=== PATIENT | male | born 1975 | race Asian ===

== ENCOUNTER → 2017-10-24 15:45 | Outpatient (CLI) | payer OTHER, SELFPAY | PROVIDERS: Visit Provider Physician Assistant | DX: R31.9 Hematuria, unspecified (principal) | CPT/HCPCS: 87086 ==

== ENCOUNTER → 2018-06-02 17:12 | Outpatient (CLI) | payer OTHER, SELFPAY ==
--- NOTE | 2018-06-02 | DI.MRI.S_ITS ---
PROCEDURE: MR KNEE LT WO CON INDICATIONS: MEDIAL LEFT KNEE PAIN TECHNIQUE: Noncontrast sagittal PD fast spin echo and T2 fast spin echo with fat saturation, sagittal 3-D FLASH with fat saturation; coronal T1 spin echo and PD fast spin echo with fat saturation, and axial PD fast spin echo with fat saturation through the knee. COMPARISON: None. FINDINGS: Image quality: Excellent. Menisci: There is peripheral displacement of medial meniscus bony medial collateral ligament. Complex oblique tear involving body to posterior horn of medial meniscus is seen extending to both superior and inferior articulating surfaces. There is no evidence of focal lateral meniscal tear. The meniscal root ligaments appear intact. Cruciate ligaments: The anterior and posterior cruciate ligaments appear intact. Medial structures: The medial collateral ligament appears intact. The posterior oblique ligament, semimembranosus tendon insertions, oblique popliteal ligament, and meniscocapsular junction appear intact. Visualized portions of the pes anserinus tendons appear normal. No abnormal bursal fluid. Lateral structures: The lateral collateral ligament, long and short heads of the biceps femoris tendon appear intact. The popliteus tendon appears normal; the popliteofibular ligament appears intact. The posterosuperior and anteroinferior popliteomeniscal fascicles appear intact. The arcuate and fabellofibular ligaments appear intact, on either side of the lateral inferior geniculate artery. Iliotibial band appears normal. Anterior structures: The quadriceps and patellar tendons appear intact. Patellar alignment is normal. No femoral trochlear dysplasia or ventral trochlear prominence. No edema in the infrapatellar fat pad. Bones and cartilage: Mild tricompartment osteoarthritis is seen with joint space narrowing and small marginal osteophyte formation. No bone marrow contusions or fractures. The cartilage of the medial and lateral femorotibial compartments, as well as the patellofemoral compartment, appears normal in thickness. Joint space: There is small amount of joint fluid. No Shipley's cyst. Normal appearing synovial plicae are incidentally noted. IMPRESSION: 1. Complex tear involving body and posterior horn of medial meniscus extending to both superior and inferior articulating surfaces. No evidence of focal lateral meniscal tear. 2. Mild tricompartment osteoarthritis. Small amount of joint fluid. 3. Cruciate ligaments are intact. Dictated by: Zay Saravia M.D. on 06/03/2018 at 10:29 Approved by: Zay Saravia M.D. on 06/03/2018 at 10:37
== END ==
PROVIDERS: PCP Family Medicine; Visit Provider Family Medicine
DX: M25.562 Pain in left knee (principal)
CPT/HCPCS: 73721

== ENCOUNTER → 2018-08-31 16:57 | Outpatient (REF) | payer OTHER, SELFPAY ==
[2018-08-31 17:17] LABS: Influenza A and B by PCR Rapid Negative (Negative)
== END ==
LOC: LAB 16:57
PROVIDERS: PCP Family Medicine; Visit Provider Family Medicine
DX: Z11.59 Encounter for screening for other viral diseases (principal)
CPT/HCPCS: 87400

== ENCOUNTER 2019-06-21 12:55 | Emergency (ER) | payer OTHER, SELFPAY ==
[2019-06-21 13:02] VITALS: BP 144/77; PULSE 77; RESP 14; TEMP 37.2; O2SAT 100; BMI 37.5
[2019-06-21 13:03] VITALS: PULSE 80
--- NOTE | 2019-06-21 13:20 | DI.RAD.S_ITS ---
PROCEDURE: XR FOOT RT 2V INDICATIONS: 2-3rd metatarsal tenderness TECHNIQUE: 2 views of the foot were acquired. COMPARISON: None. FINDINGS: Bones: No fractures or dislocations. No suspicious bony lesions. First MTP joint osteoarthritic changes are seen. Soft tissues: No tibiotalar joint effusion. Achilles tendon appears normal. IMPRESSION: No acute right foot fracture or dislocation. First MTP joint osteoarthritis. Dictated by: Zay Saravia M.D. on 06/21/2019 at 13:39 Approved by: Zay Saravia M.D. on 06/21/2019 at 13:47
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
[2019-06-21 14:07] VITALS: BP 129/70; PULSE 70; RESP 15; O2SAT 97
== END 2019-06-21 14:08 | disposition home or self-care (01) ==
PROVIDERS: Emergency Provider Nurse Practitioner; PCP Family Medicine
DX: S93.601A Unspecified sprain of right foot, initial encounter (principal); S63.501A Unspecified sprain of right wrist, initial encounter; V09.9XXA Pedestrian injured in unspecified transport accident, initial encounter; Y99.0 Civilian activity done for income or pay
CPT/HCPCS: 73620; 99283

== ENCOUNTER 2021-05-27 17:59 | Emergency (ER) | payer OTHER, SELFPAY ==
[2021-05-27 18:08] VITALS: BP 146/87; PULSE 70; RESP 20; TEMP 37.1; O2SAT 98
--- NOTE | 2021-05-27 18:41 | ED_ITS ---
HPI - Extremity Injury (Upper) General Chief Complaint: Extremity Injury, Upper Stated Complaint: rt hand injury Time Seen by Provider: 05/27/21 18:12 Source: patient Mode of arrival: Ambulatory History of Present Illness HPI narrative: Patient is a 46-year-old male with no past medical history presents with right hand pain. 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 He has pain and follow his hands parents 2nd and 3rd metacarpals. He is able flex and extend fingers no numbness or tingling. Pain has progressively worsened throughout day. There is no crush or fall injury. Related Data Home Medications Medication Instructions Recorded Confirmed No Known Home Medications 10/24/17 10/24/17 Allergies Allergy/AdvReac Type Severity Reaction Status Date / Time No Known Drug Allergies Allergy Unverified 06/03/18 09:58 Review of Systems Review of Systems Narrative: GENERAL: Denies chills,fever HEENT: Denies throat pain RESPIRATORY: Denies dyspnea, cough, wheezing CARDIOVASCULAR: Denies chest pain, palpitations GASTROINTESTINAL: Denies nausea, vomiting MUSCULOSKELETAL: See HPI SKIN: No rash, no laceration, no pruritus NEUROLOGIC: Denies weakness, dizziness, headache, numbness 8 point review of systems is negative except for those stated above and HPI Patient History Social History Smoking Status: Never smoker Smoking Status: Never smoker alcohol intake frequency: 0-2 drinks per day Substance Use Type: does not use Exam Initial Vital Signs Initial Vital Signs: Vital Signs Temperature 98.7 F 05/27/21 18:08 Pulse Rate 70 05/27/21 18:08 Respiratory Rate 20 05/27/21 18:08 Blood Pressure 146/87 H 05/27/21 18:08 Pulse Oximetry 98 05/27/21 18:08 GENERAL: Well-appearing, well-nourished and in no acute distress. CARDIOVASCULAR: peripheral pulses in tact, cap refill <2 sec RESPIRATORY: No respiratory distress, speaks in full sentences without difficulty EXTREMITIES: Normal range of motion, no clubbing or edema. Neurovascularly intact Right hand no swelling or redness no obvious deformity he is able to flex and extend at the IP PIP and MCP had all fingers good abdomen ad duction of fingers range of motion is difficult secondary to pain but he is able sedated NEUROLOGICAL: Cranial nerves II through XII grossly intact. Normal gait and speech. SKIN: Warm, dry, no petechiae, no rashes or lesions. Course Vital Signs Vital signs: Vital Signs - 8 hr 05/27/21 18:08 Temperature 98.7 F Pulse Rate 70 Respiratory Rate 20 Blood Pressure 146/87 H Pulse Oximetry 98 MDM - Extremity Injury (Upper) MDM Narrative Medical decision making narrative: At this time no need for imaging no specific injury is probable tendon or ligament sprain. Recommend ice anti-inflammatories and rest may need outpatient MRI if no improvement. Discharge Plan Departure Patient Disposition: Home Clinical Impression: Sprain and strain of right hand Instructions: Sprain Activity Restrictions/Additional Instructions: *You have been diagnosed with right hand sprain *What to do: At this time elevate ice and use wrist splint if it is helpful. This can take 2-3 weeks to heal *Continue to take medications as directed Ibuprofen 600 mg every 6-8 hours if needed for [id number] pain *Follow up with your primary care provider in 2-3 days or call [phone] *Return to ER if you should have increasing pain swelling redness or any new, worsening or concerning symptoms Prescriptions: No Action No Known Home Medications 0RF Referrals: Brea Anthony DO [Primary Care Provider] -
== END 2021-05-27 18:59 | disposition home or self-care (01) ==
PROVIDERS: Emergency Provider Emergency Medicine; PCP Family Medicine
DX: S63.91XA Sprain of unspecified part of right wrist and hand, initial encounter (principal); S66.911A Strain of unspecified muscle, fascia and tendon at wrist and hand level, right hand, initial encounter; X58.XXXA Exposure to other specified factors, initial encounter; Y93.89 Activity, other specified; Y99.0 Civilian activity done for income or pay
CPT/HCPCS: 99281; 99282

== ENCOUNTER → 2021-09-05 16:21 | Outpatient (CLI) | payer OTHER, SELFPAY ==
--- NOTE | 2021-09-05 16:24 | DI.RAD.S_ITS ---
PROCEDURE: XR KNEE RT 3V INDICATIONS: RIGHT KNEE INJURY TECHNIQUE: 3 views of the knee were acquired. COMPARISON: None. FINDINGS: Bones: No fractures or dislocations. No suspicious bony lesions. Lateral subluxation of the patella noted with significant joint space narrowing. Mild medial compartment femoral-tibial joint space narrowing noted as well. Marginal osteophytes present. Moderate joint effusion. Soft tissues: Moderate joint effusion. Diffuse soft tissue swelling. IMPRESSION: Lateral subluxation of the patella Soft tissue swelling and moderate joint effusion Osteoarthritis Approved by: Zeus Griggs M.D. on 09/05/2021 at 16:25
== END ==
PROVIDERS: PCP Family Medicine; Referring Provider Family Medicine; Visit Provider Family Medicine
DX: S83.011A Lateral subluxation of right patella, initial encounter (principal); S86.911A Strain of unspecified muscle(s) and tendon(s) at lower leg level, right leg, initial encounter; M17.11 Unilateral primary osteoarthritis, right knee; M79.89 Other specified soft tissue disorders; X58.XXXA Exposure to other specified factors, initial encounter
CPT/HCPCS: 73562

== ENCOUNTER → 2022-01-30 13:46 | Outpatient (CLI) | payer OTHER, SELFPAY ==
--- NOTE | 2022-01-30 13:50 | DI.MRI.S_ITS ---
PROCEDURE: MR LOWER LEG RT WO CON INDICATIONS: PAIN IN RT LEG TECHNIQUE: Noncontrast coronal and sagittal T1 spin echo and STIR; axial T1 spin echo and T2 fast spin echo with fat saturation through the right lower leg. COMPARISON: [facility], CR, XR KNEE RT 3V, 09/05/2021, 16:14. FINDINGS: Image quality: Excellent. Bones: The visualized bone marrow demonstrates normal signal on all sequences. The overlying cortex appears intact. No fractures lines or intra-osseous lesions. No periosteal or endosteal edema is seen.Degenerative changes are seen in the right medial and lateral femorotibial compartments with marginal osteophyte formation. However, the internal structures of the knees are not well evaluated on this exam that is tailored for evaluation of the lower leg. Similar findings are seen in the contralateral left knee, also not well visualized. Soft tissues: Mild nonspecific subcutaneous soft tissue edema surrounding the lower leg, which is more prominent distally. Subtle increased signal intensity is seen within the soleus muscle diffusely, which is more apparent proximally. Muscular signal throughout the lower leg is otherwise within normal limits. No fascial defect or abnormal fascial edema. No muscular herniation. Achilles tendon is intact. There is longitudinal split tearing of the included portion of the peroneus brevis tendon at the level of the distal fibula. There is mild generalized grade 1-2 fatty infiltration of the lower leg musculature. No focal soft tissue mass. IMPRESSION: 1. 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 2. Very subtle increased T2-weighted signal within the soleus muscle may represent early or mild denervation changes versus mild grade 1 strain or less likely myositis. 3. Bilateral knee osteoarthrosis is partially imaged and not well evaluated. Dictated by: Jace Lomeli M.D. on 01/30/2022 at 20:05 Approved by: Jace Lomeli M.D. on 01/30/2022 at 20:16
== END ==
PROVIDERS: PCP Family Medicine; Referring Provider Orthopaedic Surgery; Visit Provider Orthopaedic Surgery
DX: S96.811A Strain of other specified muscles and tendons at ankle and foot level, right foot, initial encounter (principal); M17.0 Bilateral primary osteoarthritis of knee; M79.661 Pain in right lower leg
CPT/HCPCS: 73718

== ENCOUNTER → 2023-04-02 15:16 | Outpatient (CLI) | payer OTHER, SELFPAY ==
--- NOTE | 2023-04-02 | DI.NM.S_ITS ---
PROCEDURE: NM EXERCISE TREADMILL NON NUC COMPARISON: None. INDICATIONS: Other chest pain FINDINGS: The patient exercised for 10 minutes and 0 seconds reaching 101% of maximum predicted heart rate. RERE +6%. No chest pain. Mild horizontal ST depressions in the aVF and V6 leads. No ectopy. Hypertensive response to exercise (resting BP 140/100mmHg, max BP 220/98mmHg). IMPRESSION: Abnormal stress test due to Mild horizontal ST depressions in the aVF and V6 leads. Hypertensive response to exercise (resting BP 140/100mmHg, max BP 220/98mmHg). No angina. Fair exercise capacity (RERE +6%). Recommend further optimization of BP control and recommend treadmill nuclear stress test for further assessment. Dictated by: Cata Leon MD on 04/02/2023 at 17:00 Approved by: Cata Leon MD on 04/02/2023 at 17:04
== END ==
PROVIDERS: PCP Family Medicine; Referring Provider Family Medicine; Visit Provider Family Medicine
DX: R07.89 Other chest pain (principal); R94.39 Abnormal result of other cardiovascular function study
CPT/HCPCS: 93017

== ENCOUNTER → 2023-10-18 15:05 | Outpatient (CLI) | payer OTHER, SELFPAY ==
--- NOTE | 2023-10-18 15:06 | DI.RAD.S_ITS ---
PROCEDURE: XR ANKLE LT MIN 3V INDICATIONS: LT ANKLE PAIN TECHNIQUE: 3 views of the ankle were acquired. COMPARISON: [facility], XR ANKLE 3V LEFT, 09/05/2003, 10:36. FINDINGS: Bones: No fractures or dislocations. Ankle mortise is normally aligned. No suspicious bony lesions. Mild degenerative joint disease Soft tissues: No tibiotalar joint effusion. Achilles tendon appears normal. IMPRESSION: 1. No acute bony abnormality or significant effusion. 2. Mild degenerative joint disease. Dictated by: Quynh Tejada M.D. on 10/18/2023 at 16:54 Approved by: Quynh Tejada M.D. on 10/18/2023 at 16:55
== END ==
PROVIDERS: PCP Family Medicine; Referring Provider Family Medicine; Visit Provider Family Medicine
DX: M19.072 Primary osteoarthritis, left ankle and foot (principal); M25.572 Pain in left ankle and joints of left foot
CPT/HCPCS: 73610

== ENCOUNTER → 2025-02-15 09:25 | Outpatient (CLI) | payer OTHER, SELFPAY ==
--- NOTE | 2025-02-16 17:26 | DI.NM.S_ITS ---
DATE OF SERVICE: 02/15/2025 EXERCISE PERFUSION STUDY INDICATIONS: Chest tightness, anxiety, fatigue. RADIOPHARMACEUTICAL: 25.3 millicurie technetium-99m Myoview IV was injected at stress and 25 millicurie technetium-99m Myoview IV was injected at rest. CARDIAC STRESS: The patient underwent exercise perfusion study under the supervision of an attending staff using Phoenix protocol. He walked on Phoenix protocol for 10 minutes and 8 seconds, achieved maximum heart rate of 184 which was 109% of target heart rate. Baseline blood pressure of 138/100 and peak blood pressure 208/88. Baseline rhythm was sinus. During stress, the patient developed right axis. Nonspecific ST- T changes. In the immediate recovery about [address] depression in leads V5 to V6, which was kind of horizontal which improved within 17 seconds in recovery. Rare PVCs. No complex arrhythmias. No chest pain. The patient had some shortness of breath. 12.8 METS of workload. RERE positive 5%. RAW DATA: Significantly increased subdiaphragmatic activity. Soft tissue shadow around heart. The patient's weight is 315 pounds. MYOCARDIAL PERFUSION SCAN: Stress supine, resting supine and stress prone images were compared to each other. Stress supine and resting supine images revealed small size, mildly decreased perfusion of basal anterior wall, basal inferior wall and distal anterior septum which got significantly improved during stress prone images. However, stress prone images remained to have mildly decreased perfusion of distal anteroseptum. No significant reversible ischemia. CONCLUSION: 1. No obvious reversible ischemia. 2. Resting and supine stress images showed basal anterior wall, basal inferior wall, and distal anteroseptal defect which got significantly improved during stress prone images with mildly persistent decrease in distal anterior septum likely due to tissue attenuation artifact. The patient's weight is 315 pounds. No significant ischemia. The patient walked on Phoenix protocol for 10 minutes. 12.8 METS of workload. Peak blood pressure 208/88. No concerning significant ischemic EKG changes or arrhythmias. No chest pain. Preserved LV function with LV ejection fraction 72% without any significant wall motion abnormalities. Overall, low-risk exercise perfusion study. Correlate clinically. Jace Pena - ABEL/ivory/YORDAN doc#: [id number]/job#: [id number] dd: 02/16/2025 17:10:00 dt: 02/16/2025 17:15:00 DICTATING MD/COPIES TO: Janes Romero MD COPIES MNE: PAMELA;
== END ==
LOC: NUCM 09:25
PROVIDERS: PCP Family Medicine; Referring Provider Family Medicine; Visit Provider Family Medicine
DX: R94.39 Abnormal result of other cardiovascular function study (principal); R07.89 Other chest pain; F41.9 Anxiety disorder, unspecified; R53.83 Other fatigue
CPT/HCPCS: 78452; 93017; A9502